=== PATIENT | female | born 1980 | race Caucasian/White ===

== ENCOUNTER 2022-02-23 17:48 | Emergency (ER) | payer OTHER ==
[~2022-02-23] VITALS: Ht 167.6 cm; Wt 76.0 kg
[2022-02-23] MEDS ORDERED: KETOROLAC 60MG/2ML VIAL IM STA (20:15)
[2022-02-23] MEDS ORDERED: CYCLOBENZAPRINE 10MG TABLET PO SCH (20:15)
[2022-02-23 20:41] LABS: BASOPHILS % 0.7 % (0.0-2.0); EOSINOPHILS % 2.2 % (0.0-5.0); HEMATOCRIT. 42.1 % (36.0-48.0); HEMOGLOBIN. 14.5 g/dL (12.0-16.0); LYMPHOCYTES % 28.9 % (20.0-50.0); MEAN CORPUSCULAR HEMOGLOBIN 31.2 pg (28.0-32.0); MEAN CORPUSCULAR VOLUME 90.9 fL (81.0-99.0); MEAN PLATELET VOLUME 8.3 fl (7.4-10.4); MONOCYTES % 8.5 % (2.0-8.0); NEUTROPHILS % 59.7 % (40.0-76.0); PLATELET 327 x1000/uL (130-400); RED BLOOD CELL COUNT 4.63 mill/uL (4.2-5.4); RED CELL DISTRIBUTION WIDTH 12.5 % (11.6-14.6)
[2022-02-23 20:52] LABS: HCG SCREEN NEGATIVE
[2022-02-23 21:10] LABS: CHLORIDE 107 mEq/L (98-107)
[2022-02-24 01:45] VITALS: BP 156/86
[2022-02-24] MEDS ORDERED: KETOROLAC 60MG/2ML VIAL IM NR (01:45)
[2022-02-24 02:35] LABS: CLARITY URINE CLEAR (CLEAR); COLOR URINE DARK YELLOW (YELLOW); KETONES URINE TRACE (NEGATIVE); LEUKOCYTE ESTERASE URINE NEGATIVE (NEGATIVE); NITRITE URINE NEGATIVE (NEGATIVE); OCCULT BLOOD URINE TRACE (NEGATIVE); PROTEIN URINE NEGATIVE (NEGATIVE); SPECIFIC GRAVITY URINE 1.034 (1.005-1.030); UROBILINOGEN URINE 0.2 E.U./dL (0.2-1.0)
[2022-02-24] MEDS ORDERED: CYCLOBENZAPRINE 10MG TABLET PO ONE (02:45)
[2022-02-24] MEDS ORDERED: IOHEXOL-350 100 ML BOTTLE ONE (09:17)
== END 2022-02-24 06:37 | disposition home or self-care (01) ==
LOC: ER 17:48
DX: M54.6 Pain in thoracic spine (principal); E78.00 Pure hypercholesterolemia, unspecified; Z90.49 Acquired absence of other specified parts of digestive tract
CPT/HCPCS: 36415; 71275; 74174; 80053; 81003; 81025; 84484; 84703; 85025; 96372; 99284; J1885; Q9967